=== PATIENT | male | born 1975 | race Caucasian/White ===

== ENCOUNTER 2019-10-26 14:33 | Inpatient (IN) | payer MEDICAID ==
[~2019-10-26] VITALS: Ht 157.5 cm; Wt 56.0 kg
--- NOTE | 2019-10-26 14:53 | NUR ---
Primary RN Jody made aware regarding aptient's bp and inability to obtain temp via oral route.
--- NOTE | 2019-10-26 15:25 | NUR ---
Attempted to start PIV to right upper arm using ultrasound machine but unsuccessful,as RN was advancing the cath,patient started cursing,about to get up and wanting iv out.Dr. Pastrana made aware.PICC nurse paged.
[2019-10-26] MEDS ORDERED: normal saline 1000ML IV soln IVB ONE ×2 (15:30→16:50)
--- NOTE | 2019-10-26 15:31 | NUR ---
PICC RN at bedside.
[2019-10-26 16:17] LABS: BASOPHILS # (AUTO) 0.1 X10'3 (0-0.2); BASOPHILS % (AUTO) 1.2 % (0-1); EOSINOPHILS # (AUTO) 0.2 X10'3 (0-0.9); EOSINOPHILS % (AUTO) 1.9 % (0-6); HEMATOCRIT 54.4 % (42.0-52.0); LYMPHOCYTES # (AUTO) 2.3 X10'3 (1.1-4.8); LYMPHOCYTES % (AUTO) 21.1 % (21-51); MEAN CORPUSCULAR HEMOGLOBIN 32.4 PG (27.0-31.0); MEAN CORPUSCULAR HGB CONC 33.6 g/dL (33.0-36.5); MEAN CORPUSCULAR VOLUME 96.5 FL (78-98); MEAN PLATELET VOLUME 8.2 FL (7.4-10.4); MONOCYTES # (AUTO) 0.9 X10'3 (0-0.9); NEUTROPHILS # (AUTO) 7.4 X10'3 (1.8-7.7); NEUTROPHILS % (AUTO) 67.8 % (42-75); PLATELET COUNT 295 X10'3 (140-440); RED BLOOD COUNT 5.64 X10'6 (4.70-6.10); RED CELL DISTRIBUTION WIDTH 15.3 % (11.5-14.5)
[2019-10-26 16:19] LABS: HEMOGLOBIN 18.3 g/dl (14.0-17.9)
[2019-10-26 16:34] LABS: ALANINE AMINOTRANSFERASE 48 U/L (12-78); ALBUMIN 4.2 G/DL (3.4-5.0); ALKALINE PHOSPHATASE 131 IU/L (46-116); ANION GAP 9 (8-16); ASPARTATE AMINO TRANSFERASE 35 U/L (10-37); BILIRUBIN,TOTAL 1.3 MG/DL (0.1-1.0); BLOOD UREA NITROGEN 59 MG/DL (7-18); BUN/CREATININE RATIO 15.5 (5.4-32.0); CALCIUM 9.2 MG/DL (8.5-10.1); CHLORIDE 101 MMOL/L (99-107); CREATININE 3.81 MG/DL (0.60-1.10); GLUCOSE 116 MG/DL (70-104); MAGNESIUM 2.7 MG/DL (1.5-2.4); POTASSIUM 5.1 MMOL/L (3.5-5.1); SODIUM 138 MMOL/L (135-145); TOTAL CARBON DIOXIDE 28.4 MMOL/L (24-32); TOTAL PROTEIN 8.6 G/DL (6.4-8.2); eGFR 17 ML/MIN
--- NOTE | 2019-10-26 18:39 | NUR ---
No krueger in ED - 10/26/19 at 1847 by JACOBO Spoke with DO rachel Rowe. New order received.
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
[2019-10-26] MEDS ORDERED: CARV6.253 PO (19:32)
[2019-10-26] MEDS ORDERED: BUME1TAB8 PO (19:32)
[2019-10-26] MEDS ORDERED: SACU1TAB PO (19:32)
[2019-10-26] MEDS ORDERED: DIGO125T2 PO (19:32)
[2019-10-26] MEDS ORDERED: FURO20TA4 PO (19:32)
[2019-10-26] MEDS ORDERED: magnesium 2GM in 50ml NS 50 ML IV PRN (19:40)
[2019-10-26] MEDS ORDERED: bisacodyl 10mg suppository rectal RC PRN (19:40)
[2019-10-26] MEDS ORDERED: LORazepam 2 mg/ml vial IV PRN (19:40)
[2019-10-26] MEDS ORDERED: magnesium hydroxide 30ml (MOM) UD suspension PO PRN (19:40)
[2019-10-26] MEDS ORDERED: HYDROcodone/acetaminophen 5mg/325mg tablet PO PRN (19:40)
[2019-10-26] MEDS ORDERED: magnesium 4gm in 100ml NS 100 ML IV PRN (19:40)
[2019-10-26] MEDS ORDERED: magnesium Cl slow-release 64mg tablet PO PRN (19:40)
[2019-10-26] MEDS ORDERED: mag hydrox/Alum hydrox/simeth 30ml oral suspension PO PRN (19:40)
[2019-10-26] MEDS ORDERED: acetaminophen 325mg tablet PO PRN (19:40)
[2019-10-26] MEDS ORDERED: ondansetron/PF 4mg/2ml inj IV PRN (19:40)
[2019-10-26] MEDS ORDERED: potassium CL 10mEq/100ml bag 100 ML IV PRN ×2 (19:40)
[2019-10-26] MEDS ORDERED: potassium Cl 20 mEq SR tablet PO PRN ×2 (19:40)
[2019-10-26] MEDS ORDERED: nicotine 21mg patch - 24 hr TD ONE (19:40)
[2019-10-26] MEDS: K and/or MAG REPLACEMENT MC SCH (19:52)
[2019-10-26] MEDS: docusate sod 100mg capsule PO SCH (19:52)
--- NOTE | 2019-10-26 20:15 | NUR ---
Pt. given a turkey sandwich.
[2019-10-26] MEDS ORDERED: carVEDilol 3.125mg tablet PO ONE (20:20)
[2019-10-26 21:00] VITALS: BP 92/61
[2019-10-26] MEDS ORDERED: temazepam 15mg capsule PO PRN (21:00)
[2019-10-27 00:23] LABS: CLARITY,URINE CLEAR (Clear); COLOR,URINE YELLOW (Yellow); GLUCOSE, URINE NEGATIVE (Neg); KETONES,URINE NEGATIVE (Neg); LEUKOCYTE ESTERASE ,URINE NEGATIVE (Neg); NITRITES, URINE NEGATIVE (Neg); OCCULT BLOOD,URINE NEGATIVE (Neg); PH,URINE 5.5 (4.8-8.0); PROTEIN,URINE NEGATIVE (Neg); UROBILINOGEN,URINE 0.2 E.U/dL (0.2-1.0)
[2019-10-27 00:24] LABS: UA COLLECTION TYPE CLN CATCH MIDSTREAM
[2019-10-27 00:43] LABS: URINE AMPHETAMINE SCREEN POSITIVE (Neg); URINE BARBITUATE SCREEN NEGATIVE (Neg); URINE BENZODIAZEPINES SCREEN NEGATIVE (Neg); URINE CANNABINOID SCREEN POSITIVE (Neg); URINE COCAINE SCREEN NEGATIVE (Neg); URINE METHADONE SCREEN NEGATIVE (Neg); URINE OPIATE SCREEN NEGATIVE (Neg); URINE PHENCYCLIDINE SCREEN NEGATIVE (Neg)
[2019-10-27 02:00] VITALS: BP 95/66
[2019-10-27 04:27] LABS: BASOPHILS # (AUTO) 0.1 X10'3 (0-0.2); BASOPHILS % (AUTO) 0.7 % (0-1); EOSINOPHILS # (AUTO) 0.2 X10'3 (0-0.9); HEMATOCRIT 49.1 % (42.0-52.0); HEMOGLOBIN 16.5 g/dl (14.0-17.9); LYMPHOCYTES # (AUTO) 2.6 X10'3 (1.1-4.8); LYMPHOCYTES % (AUTO) 24.5 % (21-51); MEAN CORPUSCULAR HEMOGLOBIN 32.3 PG (27.0-31.0); MEAN CORPUSCULAR HGB CONC 33.6 g/dL (33.0-36.5); MEAN PLATELET VOLUME 8.1 FL (7.4-10.4); MONOCYTES # (AUTO) 0.9 X10'3 (0-0.9); MONOCYTES % (AUTO) 8.3 % (2-12); NEUTROPHILS # (AUTO) 6.8 X10'3 (1.8-7.7); NEUTROPHILS % (AUTO) 64.5 % (42-75); PLATELET COUNT 254 X10'3 (140-440); RED BLOOD COUNT 5.11 X10'6 (4.70-6.10); RED CELL DISTRIBUTION WIDTH 15.4 % (11.5-14.5); WHITE BLOOD COUNT 10.5 X10'3 (4.5-11.0)
[2019-10-27 04:28] LABS: ALANINE AMINOTRANSFERASE 38 U/L (12-78); ALBUMIN/GLOBULIN RATIO 0.9 (1.1-1.5); ALKALINE PHOSPHATASE 106 IU/L (46-116); ANION GAP 8 (8-16); ASPARTATE AMINO TRANSFERASE 32 U/L (10-37); BILIRUBIN,TOTAL 1.2 MG/DL (0.1-1.0); BLOOD UREA NITROGEN 53 MG/DL (7-18); BUN/CREATININE RATIO 19.4 (5.4-32.0); CALCIUM 8.3 MG/DL (8.5-10.1); CHLORIDE 105 MMOL/L (99-107); CREATININE 2.73 MG/DL (0.60-1.10); GLUCOSE 92 MG/DL (70-104); POTASSIUM 4.2 MMOL/L (3.5-5.1); SODIUM 140 MMOL/L (135-145); TOTAL PROTEIN 6.4 G/DL (6.4-8.2); eGFR 25 ML/MIN
[2019-10-27 04:31] LABS: MAGNESIUM 2.3 MG/DL (1.5-2.4)
--- NOTE | 2019-10-27 06:14 | NUR ---
Patient in room PCU 3023. I have received report from Andres CABAN and had the opportunity to ask questions and assume patient care.
--- NOTE | 2019-10-27 06:18 | NUR ---
Problems reprioritized. Patient report given, questions answered & plan of care reviewed with Fabricio CABAN.
[2019-10-27 07:00] VITALS: BP 96/68
[2019-10-27] MEDS ORDERED: digoxin 125mcg (0.125mg) tablet PO SCH (08:00)
[2019-10-27] MEDS ORDERED: bumetanide 1mg tablet PO SCH (08:00)
[2019-10-27] MEDS: K and/or MAG REPLACEMENT MC SCH (08:00)
[2019-10-27] MEDS ORDERED: carvedilol 6.25mg tablet PO SCH (08:00)
[2019-10-27] MEDS: docusate sod 100mg capsule PO SCH (08:02)
--- NOTE | 2019-10-27 08:36 | NUR ---
0800 125 mcg Digoxin did not scan. Med administered
[2019-10-27 11:00] VITALS: BP 102/65
--- NOTE | 2019-10-27 13:37 | NUR ---
Patient safe for discharge per MD orders, discharge instructions reviewed with patient and questions answered, tele and PIV DC, belongings collected and sent with patient, wheeled to lobby and picked up by mother.
== END 2019-10-27 13:25 | disposition home or self-care (01) | DRG 207 ==
LOC: ER 14:34 → ED HOLD 19:38 → PCU 3S 20:54
PROVIDERS: ADMIT Family Medicine; ATTEND Internal Medicine
DX: I95.2 Hypotension due to drugs (principal); N17.9 Acute kidney failure, unspecified; I27.20 Pulmonary hypertension, unspecified; I42.9 Cardiomyopathy, unspecified; E86.0 Dehydration; K92.1 Melena; F17.200 Nicotine dependence, unspecified, uncomplicated; R00.0 Tachycardia, unspecified; T50.905A Adverse effect of unspecified drugs, medicaments and biological substances, initial encounter; Y92.89 Other specified places as the place of occurrence of the external cause; F15.10 Other stimulant abuse, uncomplicated; R07.89 Other chest pain; I45.10 Unspecified right bundle-branch block; I50.22 Chronic systolic (congestive) heart failure; Z79.899 Other long term (current) drug therapy; Z71.6 Tobacco abuse counseling
CPT/HCPCS: 36415; 71045; 76937; 80053; 80162; 80305; 81003; 83735; 83880; 84484; 85025; 85610; 87081; 93005; 93306; 99285; G0378; J7030

== ENCOUNTER 2020-03-10 21:59 | Emergency (ER) | payer MEDICAID ==
[~2020-03-10] VITALS: Ht 157.5 cm; Wt 58.8 kg
[~2020-03-10 21:59] MED LIST: BUME1TAB8 PO; CARV6.253 PO; DIGO125T2 PO; SACU1TAB PO
[2020-03-10 22:12] VITALS: BP 149/113
[2020-03-10] MEDS ORDERED: predniSONE 20 mg tablet PO ONE (22:50)
[2020-03-10] MEDS ORDERED: PRED20TA PO (23:00)
== END 2020-03-10 23:47 | disposition home or self-care (01) ==
LOC: ER 22:00
DX: M10.9 Gout, unspecified (principal); F15.90 Other stimulant use, unspecified, uncomplicated; I27.20 Pulmonary hypertension, unspecified; Z79.899 Other long term (current) drug therapy; Z72.89 Other problems related to lifestyle
CPT/HCPCS: 73630; 99283; J7512

== ENCOUNTER 2020-05-15 05:41 | Emergency (ER) | payer MEDICAID ==
[~2020-05-15] VITALS: Ht 157.5 cm; Wt 57.7 kg
--- NOTE | 2020-05-15 05:49 | NUR ---
mother, Sara notes pt toog digoxin, carvedilol, Digoxin and entresto [employer]. her number is [phone]
--- NOTE | 2020-05-15 06:22 | NUR ---
MULTIPLE NURSES ATTEMPTED TO PLACE A PIV AND GET LAB WORK WITHOUT SUCCESS, DR LIM AT BEDSIDE ATTEMPTING TO OBTAIN A PIV AN DRAW LABS. LAB WORK OBTAINED AND SENT TO LAB
[2020-05-15] MEDS ORDERED: ondansetron 4mg rapidly disintigrating tab PO ONE (06:25)
[2020-05-15 06:40] LABS: BASOPHILS # (AUTO) 0.1 X10'3 (0-0.2); BASOPHILS % (AUTO) 0.8 % (0-1); EOSINOPHILS # (AUTO) 0.2 X10'3 (0-0.9); EOSINOPHILS % (AUTO) 1.3 % (0-6); HEMATOCRIT 53.7 % (42.0-52.0); LYMPHOCYTES # (AUTO) 1.7 X10'3 (1.1-4.8); LYMPHOCYTES % (AUTO) 13.2 % (21-51); MEAN CORPUSCULAR HEMOGLOBIN 31.5 PG (27.0-31.0); MEAN CORPUSCULAR HGB CONC 33.5 g/dL (33.0-36.5); MEAN CORPUSCULAR VOLUME 94.1 FL (78-98); MONOCYTES # (AUTO) 0.9 X10'3 (0-0.9); MONOCYTES % (AUTO) 6.9 % (2-12); NEUTROPHILS # (AUTO) 10.2 X10'3 (1.8-7.7); NEUTROPHILS % (AUTO) 77.8 % (42-75); PLATELET COUNT 295 X10'3 (140-440); RED BLOOD COUNT 5.71 X10'6 (4.70-6.10); RED CELL DISTRIBUTION WIDTH 14.1 % (11.5-14.5); WHITE BLOOD COUNT 13.1 X10'3 (4.5-11.0)
[2020-05-15 06:51] LABS: ALANINE AMINOTRANSFERASE 37 U/L (12-78); ALBUMIN 3.3 G/DL (3.4-5.0); ALBUMIN/GLOBULIN RATIO 0.8 (1.1-1.5); ALKALINE PHOSPHATASE 135 IU/L (46-116); ANION GAP 5 (8-16); ASPARTATE AMINO TRANSFERASE 35 U/L (10-37); BILIRUBIN,TOTAL 1.2 MG/DL (0.1-1.0); BLOOD UREA NITROGEN 30 MG/DL (7-18); BUN/CREATININE RATIO 18.2 (5.4-32.0); CALCIUM 8.8 MG/DL (8.5-10.1); CHLORIDE 101 MMOL/L (99-107); CREATININE 1.65 MG/DL (0.60-1.10); GLUCOSE 117 MG/DL (70-104); POTASSIUM 4.5 MMOL/L (3.5-5.1); SODIUM 137 MMOL/L (135-145); TOTAL CARBON DIOXIDE 30.6 MMOL/L (24-32); TOTAL PROTEIN 7.6 G/DL (6.4-8.2); eGFR 45 ML/MIN
[2020-05-15 07:00] LABS: MAGNESIUM 2.1 MG/DL (1.5-2.4)
[2020-05-15] MEDS ORDERED: sucralfate 1gm/10ml UD suspension PO STA (07:07)
[2020-05-15] MEDS ORDERED: LIDOcaine Viscous 15ml cup MM ONE (07:10)
[2020-05-15] MEDS ORDERED: mag hydrox/Alum hydrox/simeth 30ml oral suspension PO ONE (07:10)
[2020-05-15] MEDS ORDERED: proCHLORperazine 10 MG/2 ml inj IM ONE (07:15)
[2020-05-15] MEDS ORDERED: PANT20TA2 PO (07:17)
[2020-05-15] MEDS ORDERED: PROC-8 PO (07:17)
[2020-05-15 08:43] VITALS: BP 126/72
[2020-05-17] MEDS ORDERED: PANT-47 PO (14:11)
== END 2020-05-15 08:47 | disposition home or self-care (01) ==
LOC: ER 05:41
DX: R10.13 Epigastric pain (principal); R11.0 Nausea; F15.90 Other stimulant use, unspecified, uncomplicated; Z72.89 Other problems related to lifestyle; Z79.899 Other long term (current) drug therapy
CPT/HCPCS: 36415; 71045; 80053; 80162; 83735; 83880; 84484; 85025; 93005; 96372; 99285; J0780

== ENCOUNTER 2020-12-21 13:45 | Emergency (ER) | payer MEDICAID ==
[~2020-12-21] VITALS: Ht 157.5 cm; Wt 56.8 kg
[~2020-12-21 13:45] MED LIST changes: +PANT-47 PO; +PROC-8 PO; -SACU1TAB PO
[2020-12-21 14:53] VITALS: BP 105/81
== END 2020-12-21 15:27 | disposition home or self-care (01) ==
LOC: ER 13:46
DX: R50.9 Fever, unspecified (principal); Z20.822 Contact with and (suspected) exposure to COVID-19; R05 Cough; F15.90 Other stimulant use, unspecified, uncomplicated; Z72.89 Other problems related to lifestyle; Z79.899 Other long term (current) drug therapy
CPT/HCPCS: 87635; 99283; C9803

== ENCOUNTER 2021-07-23 16:02 | Emergency (ER) | payer MEDICAID ==
[~2021-07-23] VITALS: Ht 157.5 cm; Wt 59.5 kg
[2021-07-23 16:45] LABS: CLARITY,URINE CLEAR (Clear); COLOR,URINE YELLOW (Yellow); GLUCOSE, URINE NEGATIVE (Neg); KETONES,URINE NEGATIVE (Neg); LEUKOCYTE ESTERASE ,URINE NEGATIVE (Neg); NITRITES, URINE NEGATIVE (Neg); OCCULT BLOOD,URINE NEGATIVE (Neg); PROTEIN,URINE TRACE mg/dl (Neg); UROBILINOGEN,URINE 0.2 E.U/dL (0.2-1.0)
[2021-07-23 16:49] LABS: BASOPHILS # (AUTO) 0.1 X10'3 (0-0.2); BASOPHILS % (AUTO) 0.5 % (0-1); EOSINOPHILS # (AUTO) 0.2 X10'3 (0-0.9); EOSINOPHILS % (AUTO) 1.9 % (0-6); HEMATOCRIT 53.6 % (42.0-52.0); LYMPHOCYTES # (AUTO) 1.4 X10'3 (1.1-4.8); LYMPHOCYTES % (AUTO) 13.5 % (21-51); MEAN CORPUSCULAR HEMOGLOBIN 31.2 PG (27.0-31.0); MEAN CORPUSCULAR HGB CONC 33.5 g/dL (33.0-36.5); MEAN CORPUSCULAR VOLUME 93.3 FL (78-98); MEAN PLATELET VOLUME 8.6 FL (7.4-10.4); MONOCYTES # (AUTO) 0.6 X10'3 (0-0.9); MONOCYTES % (AUTO) 5.5 % (2-12); NEUTROPHILS # (AUTO) 8.3 X10'3 (1.8-7.7); NEUTROPHILS % (AUTO) 78.6 % (42-75); PLATELET COUNT 248 X10'3 (140-440); RED BLOOD COUNT 5.74 X10'6 (4.70-6.10); RED CELL DISTRIBUTION WIDTH 15.2 % (11.5-14.5); WHITE BLOOD COUNT 10.6 X10'3 (4.5-11.0)
[2021-07-23 16:50] LABS: UA COLLECTION TYPE CLN CATCH MIDSTREAM
[2021-07-23 16:51] LABS: BACTERIA,URINE FEW /HPF (Neg); RBC,URINE 0-2 /HPF (0-2); SQUAMOUS EPITHELIAL CELL,UR FEW /LPF (FEW); WBC,URINE 0-4 /HPF (0-4)
[2021-07-23 17:04] LABS: ALANINE AMINOTRANSFERASE 37 U/L (12-78); ALBUMIN 3.7 G/DL (3.4-5.0); ALBUMIN/GLOBULIN RATIO 0.9 (1.1-1.5); ALKALINE PHOSPHATASE 158 IU/L (46-116); ANION GAP 12 (8-16); ASPARTATE AMINO TRANSFERASE 38 U/L (10-37); BILIRUBIN,TOTAL 1.1 MG/DL (0.1-1.0); BLOOD UREA NITROGEN 31 MG/DL (7-18); BUN/CREATININE RATIO 18.9 (5.4-32.0); CALCIUM 9.1 MG/DL (8.5-10.1); CHLORIDE 98 MMOL/L (99-107); CREATININE 1.64 MG/DL (0.60-1.10); GLUCOSE 91 MG/DL (70-104); LIPASE < 50 U/L (73-393); SODIUM 137 MMOL/L (135-145); TOTAL CARBON DIOXIDE 26.8 MMOL/L (24-32); TOTAL PROTEIN 7.7 G/DL (6.4-8.2); eGFR 45 ML/MIN
[2021-07-23] MEDS ORDERED: HYDROcodone/acetaminophen 5mg/325mg tablet PO ONE (17:15)
[2021-07-23] MEDS ORDERED: TRAM50TA2 PO (17:22)
[2021-07-23 17:41] VITALS: BP 125/80
== END 2021-07-23 17:44 | disposition home or self-care (01) ==
LOC: ER 16:03
DX: N50.812 Left testicular pain (principal); N18.9 Chronic kidney disease, unspecified; R11.0 Nausea; F17.200 Nicotine dependence, unspecified, uncomplicated; F12.90 Cannabis use, unspecified, uncomplicated; F15.90 Other stimulant use, unspecified, uncomplicated; Z72.89 Other problems related to lifestyle; Z79.899 Other long term (current) drug therapy
CPT/HCPCS: 36415; 76870; 80053; 81001; 83690; 85025; 87491; 93976; 99284

== ENCOUNTER 2021-07-28 13:47 | Emergency (ER) | payer MEDICAID ==
[~2021-07-28] VITALS: Ht 157.5 cm; Wt 59.0 kg
[~2021-07-28 13:47] MED LIST changes: +TRAM50TA2 PO
[2021-07-28 14:17] LABS: CLARITY,URINE CLEAR (Clear); COLOR,URINE YELLOW (Yellow); GLUCOSE, URINE NEGATIVE (Neg); KETONES,URINE NEGATIVE (Neg); LEUKOCYTE ESTERASE ,URINE NEGATIVE (Neg); NITRITES, URINE NEGATIVE (Neg); OCCULT BLOOD,URINE NEGATIVE (Neg); PROTEIN,URINE NEGATIVE (Neg); UROBILINOGEN,URINE 0.2 E.U/dL (0.2-1.0)
[2021-07-28 14:21] LABS: UA COLLECTION TYPE CLN CATCH MIDSTREAM
[2021-07-28 14:30] LABS: BASOPHILS # (AUTO) 0.1 X10'3 (0-0.2); BASOPHILS % (AUTO) 0.8 % (0-1); EOSINOPHILS # (AUTO) 0.1 X10'3 (0-0.9); EOSINOPHILS % (AUTO) 1.4 % (0-6); HEMATOCRIT 52.2 % (42.0-52.0); HEMOGLOBIN 17.8 g/dl (14.0-17.9); LYMPHOCYTES # (AUTO) 1.3 X10'3 (1.1-4.8); LYMPHOCYTES % (AUTO) 14.6 % (21-51); MEAN CORPUSCULAR HEMOGLOBIN 31.5 PG (27.0-31.0); MEAN CORPUSCULAR HGB CONC 34.2 g/dL (33.0-36.5); MEAN CORPUSCULAR VOLUME 92.2 FL (78-98); MEAN PLATELET VOLUME 8.6 FL (7.4-10.4); MONOCYTES # (AUTO) 0.6 X10'3 (0-0.9); MONOCYTES % (AUTO) 6.8 % (2-12); NEUTROPHILS % (AUTO) 76.4 % (42-75); PLATELET COUNT 216 X10'3 (140-440); RED BLOOD COUNT 5.66 X10'6 (4.70-6.10); WHITE BLOOD COUNT 9.1 X10'3 (4.5-11.0)
[2021-07-28 14:44] LABS: ALANINE AMINOTRANSFERASE 43 U/L (12-78); ALBUMIN 3.6 G/DL (3.4-5.0); ALBUMIN/GLOBULIN RATIO 0.9 (1.1-1.5); ALKALINE PHOSPHATASE 158 IU/L (46-116); ANION GAP 11 (8-16); ASPARTATE AMINO TRANSFERASE 45 U/L (10-37); BILIRUBIN,TOTAL 1.4 MG/DL (0.1-1.0); BLOOD UREA NITROGEN 30 MG/DL (7-18); BUN/CREATININE RATIO 20.4 (5.4-32.0); CHLORIDE 101 MMOL/L (99-107); CREATININE 1.47 MG/DL (0.60-1.10); GLUCOSE 114 MG/DL (70-104); SODIUM 141 MMOL/L (135-145); TOTAL CARBON DIOXIDE 29.2 MMOL/L (24-32); TOTAL PROTEIN 7.5 G/DL (6.4-8.2); eGFR 52 ML/MIN
--- NOTE | 2021-07-28 18:23 | NUR ---
ULTRA PAGED AT [phone]
[2021-07-28] MEDS ORDERED: HYDR-3965 PO (19:26)
[2021-07-28] MEDS ORDERED: HYDROcodone/acetaminophen 5mg/325mg tablet PO ONE (19:55)
[2021-07-28 20:02] VITALS: BP 109/75
== END 2021-07-28 20:07 | disposition home or self-care (01) ==
LOC: ER 13:48
DX: N43.40 Spermatocele of epididymis, unspecified (principal); F12.90 Cannabis use, unspecified, uncomplicated; F15.90 Other stimulant use, unspecified, uncomplicated; Z72.89 Other problems related to lifestyle; Z79.899 Other long term (current) drug therapy
CPT/HCPCS: 36415; 76870; 80053; 81003; 85025; 93976; 99284

== ENCOUNTER 2022-01-04 05:37 | Emergency (ER) | payer MEDICAID ==
[~2022-01-04] VITALS: Ht 157.5 cm; Wt 58.3 kg
[~2022-01-04 05:37] MED LIST changes: -TRAM50TA2 PO
[2022-01-04 06:08] VITALS: BP 147/96
--- NOTE | 2022-01-04 06:30 | NUR ---
PATIENT IS ON GURNEY WITH SIG OTHER, C/O LEFT HAND PAIN. CONCERNED THAT PATIENT IS IN SEVERE PAIN AND HE TOLD HER THAT THE PAIN IS SO BAD THAT HS WANTS TO KILL HIMSELF. NURSE WALKED IN ROOM TO ASSESS PATIENT AND HE GETS UP OFF GURNEY AND SAYS, "I'M NOT STAYING HERE, I'M OUT OF HERE" AND DEPARTED FROM ER THROUGH THE AMBULANCE B[facility] DOORS. DR. LIM IS HERE TO SEE PATIENT AND FOLLOWED HIM OUTSIDE. PATIENT PROCEEDED TO LEAVE, ACCOMPANIED BY .
== END 2022-01-04 06:52 | disposition left against medical advice (07) ==
LOC: ER 05:37
DX: M79.602 Pain in left arm (principal); Z53.21 Procedure and treatment not carried out due to patient leaving prior to being seen by health care provider

== ENCOUNTER 2022-02-28 18:46 | Emergency (ER) | payer MEDICAID ==
[~2022-02-28] VITALS: Ht 157.5 cm; Wt 57.7 kg
[2022-02-28 19:02] VITALS: BP 118/82
[2022-02-28 20:05] LABS: EOSINOPHILS # (AUTO) 0.1 X10'3 (0-0.9); EOSINOPHILS % (AUTO) 0.6 % (0-6); RED CELL DISTRIBUTION WIDTH 15.2 % (11.5-14.5)
[2022-02-28 20:06] LABS: BASOPHILS # (AUTO) 0.1 X10'3 (0-0.2); BASOPHILS % (AUTO) 0.4 % (0-1); HEMATOCRIT 54.7 % (42.0-52.0); LYMPHOCYTES # (AUTO) 1.2 X10'3 (1.1-4.8); LYMPHOCYTES % (AUTO) 6.9 % (21-51); MEAN CORPUSCULAR HEMOGLOBIN 31.3 PG (27.0-31.0); MEAN CORPUSCULAR HGB CONC 33.3 g/dL (33.0-36.5); MEAN PLATELET VOLUME 8.5 FL (7.4-10.4); MONOCYTES # (AUTO) 0.6 X10'3 (0-0.9); MONOCYTES % (AUTO) 3.7 % (2-12); NEUTROPHILS % (AUTO) 88.4 % (42-75); PLATELET COUNT 209 X10'3 (140-440); RED BLOOD COUNT 5.82 X10'6 (4.70-6.10)
[2022-02-28 20:15] LABS: ALANINE AMINOTRANSFERASE 73 U/L (12-78); ALBUMIN 3.3 G/DL (3.4-5.0); ALBUMIN/GLOBULIN RATIO 0.8 (1.1-1.5); ALKALINE PHOSPHATASE 244 IU/L (46-116); ANION GAP 10 (8-16); ASPARTATE AMINO TRANSFERASE 52 U/L (10-37); BILIRUBIN,TOTAL 0.7 MG/DL (0.1-1.0); BLOOD UREA NITROGEN 45 MG/DL (7-18); BUN/CREATININE RATIO 32.8 (5.4-32.0); CALCIUM 8.9 MG/DL (8.5-10.1); CHLORIDE 99 MMOL/L (99-107); CREATININE 1.37 MG/DL (0.60-1.10); GLUCOSE 165 MG/DL (70-104); SODIUM 137 MMOL/L (135-145); TOTAL CARBON DIOXIDE 27.9 MMOL/L (24-32); TOTAL PROTEIN 7.3 G/DL (6.4-8.2); eGFR 56 ML/MIN
[2022-02-28 20:17] LABS: POTASSIUM 4.2 MMOL/L (3.5-5.1)
[2022-02-28] MEDS ORDERED: HYDROcodone/acetaminophen 10/325mg tab PO ONE (20:45)
[2022-02-28 20:47] LABS: TOTAL CELLS COUNTED 100
[2022-02-28 20:48] LABS: PLATELET ESTIMATE NORMAL
[2022-02-28 20:53] LABS: HEMOGLOBIN 18.2 g/dl (14.0-17.9)
[2022-02-28] MEDS ORDERED: normal saline 1000ml 1,000 ML IV ONE ×2 (20:55)
== END 2022-02-28 21:59 | disposition home or self-care (01) ==
LOC: ER 18:46
DX: M11.241 Other chondrocalcinosis, right hand (principal); M11.242 Other chondrocalcinosis, left hand; F12.90 Cannabis use, unspecified, uncomplicated; F15.20 Other stimulant dependence, uncomplicated
CPT/HCPCS: 36415; 71045; 73120; 80053; 84145; 85007; 85025; 85651; 93005; 99285; J7030

== ENCOUNTER 2022-05-30 03:55 | Emergency (ER) | payer MEDICAID ==
[~2022-05-30] VITALS: Ht 157.5 cm; Wt 50.0 kg
[2022-05-30 04:00] VITALS: BP 140/96
== END 2022-05-30 07:21 | disposition left against medical advice (07) ==
LOC: ER 03:55
DX: M79.89 Other specified soft tissue disorders (principal); Z53.21 Procedure and treatment not carried out due to patient leaving prior to being seen by health care provider

== ENCOUNTER 2024-05-09 22:02 | Emergency (ER) | payer MEDICAID ==
[~2024-05-09] VITALS: Ht 157.5 cm; Wt 59.4 kg
[2024-05-09 22:46] LABS: BASOPHILS % (AUTO) 0.4 % (0-1); EOSINOPHILS # (AUTO) 0.1 X10'3 (0-0.9); EOSINOPHILS % (AUTO) 0.7 % (0-6); LYMPHOCYTES # (AUTO) 1.3 X10'3 (1.1-4.8); MEAN CORPUSCULAR HEMOGLOBIN 32.1 PG (27.0-31.0); MEAN CORPUSCULAR HGB CONC 33.4 g/dL (33.0-36.5); MONOCYTES # (AUTO) 1.1 X10'3 (0-0.9); MONOCYTES % (AUTO) 10.8 % (2-12); NEUTROPHILS % (AUTO) 76.1 % (42-75); PLATELET COUNT 408 X10'3 (140-440); RED BLOOD COUNT 5.31 X10'6 (4.70-6.10); RED CELL DISTRIBUTION WIDTH 18.3 % (11.5-14.5); WHITE BLOOD COUNT 10.6 X10'3 (4.5-11.0)
[2024-05-09 22:55] LABS: ALBUMIN 2.4 G/DL (3.4-5.0); ANION GAP 9 (8-16); BLOOD UREA NITROGEN 19 MG/DL (7-18); BUN/CREATININE RATIO 15.7 (10.0-20.0); CALCIUM 8.4 MG/DL (8.5-10.1); CHLORIDE 103 MMOL/L (99-107); CREATININE 1.21 MG/DL (0.60-1.10); GLUCOSE 119 MG/DL (70-104); POTASSIUM 3.8 MMOL/L (3.5-5.1); SODIUM 140 MMOL/L (135-145); TOTAL CARBON DIOXIDE 28.4 MMOL/L (24-32); eCRCL 57 ML/MIN; eGFR 64 ML/MIN
[2024-05-09 23:14] LABS: PRO BRAIN NATRIURETIC PEPTIDE 13611 PG/ML (0-125)
[2024-05-10] MEDS: adenosine 3mg/ml 2ml vial IV ONE ×3 (00:35→00:58)
[2024-05-10] MEDS ORDERED: iohexol 350MG/ML 100ml bottle IV ONE (01:22)
[2024-05-10 01:40] LABS: FREE T4 (FREE THYROXINE) 1.06 NG/DL (0.73-1.40); THYROID STIMULATING HORMONE 4.82 ulU/ml (0.34-4.50)
[2024-05-10] MEDS: traMADol 50MG tablet PO ONE (01:46)
[2024-05-10] MEDS: nicotine 14mg patch - 24hr TD ONE (03:00)
[2024-05-10] MEDS: LORazepam 2 mg/ml vial IV ONE (03:01)
[2024-05-10] MEDS: ketorolac trometh 15mg/ml vial 15 MG/ML ML IV ONE (04:29)
[2024-05-10] MEDS ORDERED: FURO-150 PO (04:57)
[2024-05-10] MEDS ORDERED: POTA-207 PO (04:57)
[2024-05-10] MEDS: furosemide 10 MG/1 ML 10ml inj IV ONE (05:06)
[2024-05-10 05:17] VITALS: BP 140/108; PULSE 121; RESP 16; TEMP 98.6; O2SAT 93
== END 2024-05-10 05:20 | disposition home or self-care (01) ==
LOC: ER 22:03
DX: R60.0 Localized edema (principal); R00.0 Tachycardia, unspecified; F12.90 Cannabis use, unspecified, uncomplicated; F15.90 Other stimulant use, unspecified, uncomplicated; Z91.040 Latex allergy status; Z88.8 Allergy status to other drugs, medicaments and biological substances; I27.20 Pulmonary hypertension, unspecified
CPT/HCPCS: 36415; 71045; 71275; 80048; 83880; 84439; 84443; 84484; 85025; 93005; 96374; 96375; 99285; J0153; J1940; J2060; J7030; Q9967